=== PATIENT | female | born 1985 | race Caucasian/White ===

== ENCOUNTER 2025-10-17 04:40 | Emergency (ER) | payer OTHER ==
[2025-10-17 05:06] LABS: #Basophils 0.13 10x3/uL (0.0-0.2); #Eosinophils 0.27 10x3/uL (0.0-0.5); #Monocytes 1.39 10x3/uL (0.0-1.1); #Neutrophils 11.16 10x3/uL (1.5-8.4); %Basophils 0.8 % (0.0-2.0); %Eosinophils 1.6 % (0.0-6.0); %Lymphocytes 21.8 % (18.0-47.0); %Monocytes 8.2 % (0.0-10.0); %Neutrophils 66.0 % (40.0-75.0); Hematocrit 39.6 % (38.8-50.0); Hemoglobin 12.7 g/dL (13.5-17.5); Mean Corpuscular Hemoglobin 29.0 pg (27.0-33.0); Mean Corpuscular Volume 90.4 fL (81.2-95.1); Platelet Count 389 10x3/uL (150-450); Red Blood Cell (RBC) Count 4.38 10x6/uL (4.32-5.72); White Blood Cell (WBC) Count 16.90 10x3/uL (3.5-10.5)
[2025-10-17 05:12] LABS: BHCG - Serum Negative; Pregs Control Background? CLEAR/WHITE (CLR/WHITE); Pregs Control Bar Appear? YES (CONTROL BAR)
[2025-10-17 05:18] LABS: ALT (SGPT) 154 U/L (Less than 45); AST (SGOT) 34 U/L (11-34); Albumin 3.9 g/dL (3.1-4.5); Alkaline Phosphatase 79 U/L (40-110); Anion Gap 14 mmol/L (10-20); BUN (Urea Nitrogen) 30 mg/dL (8.9-20.6); Bilirubin, Total 0.1 mg/dL (0.3-1.2); Calc. Creatinine Clearance 0 mL/min (70-130); Calcium 9.0 mg/dL (7.8-10.44); Carbon Dioxide 22 mmol/L (22-29); Chloride 109 mmol/L (98-107); Globulin 3.4 g/dL (2.4-3.5); Glucose 119 mg/dL (70-105); Magnesium 2.1 mg/dL (1.6-2.6); Potassium 4.6 mmol/L (3.5-5.1); Sodium 140 mmol/L (136-145)
[2025-10-17 05:25] LABS: Troponin I Less than 0.010 ng/mL (< 0.028)
[2025-10-17] MEDS ORDERED: Iopamidol 370 76% 100 ML VIAL ONE (11:40)
== END 2025-10-17 07:22 | disposition home or self-care (01) ==
LOC: EDSEX 04:40 → CSHERS 04:40
DX: R06.02 Shortness of breath (principal); I10 Essential (primary) hypertension; Z87.891 Personal history of nicotine dependence
CPT/HCPCS: 71275; 80053; 83735; 83880; 84484; 84703; 85025; 87428; 93005; 94640; 94760; 96374; J2919; Q9967